=== PATIENT | female | born 1970 | race Caucasian/White ===

== ENCOUNTER 2024-08-01 16:34 | Emergency (ER) | payer OTHER, SELFPAY ==
[2024-08-01] VITALS (24 sets, daily range): BP systolic 126–143; BP diastolic 81–92; PULSE 68–100; TEMP 36.7; O2SAT 96–100; BMI 14.9
--- NOTE | 2024-08-01 17:00 | ECG_ITS ---
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
[2024-08-01 17:45] LABS: Basophils Percent Auto 0.5 % (0.2-2.0); Eosinophils Absolute Auto 0.1 10^3/uL (0.0-0.7); Eosinophils Percent Auto 1.2 % (0.9-7.0); Hemoglobin 10.1 g/dL (12.0-16.0); Immature Granulocytes Abs Auto 0.02 10^3/uL (0.00-0.03); Immature Granulocytes Pct Auto 0.3 % (0.0-0.5); Lymphocytes Absolute Auto 1.9 10^3/uL (1.2-3.8); Lymphocytes Percent Auto 31.8 % (20.5-60.0); Mean Corpuscular HGB Conc 31.6 g/dL (29.9-35.2); Mean Corpuscular Hemoglobin 29.5 pg (26.7-34.0); Mean Corpuscular Volume 93.6 fL (81.0-99.0); Mean Platelet Volume 9.8 fL (9.5-13.5); Monocytes Absolute Auto 0.4 10^3/uL (0.3-0.8); Monocytes Percent Auto 7.4 % (1.7-12.0); Neutrophils Absolute Auto 3.5 10^3/uL (1.4-6.5); Neutrophils Percent Auto 58.8 % (43.0-75.0); Platelet Count 311 10^3/uL (150-450); Red Blood Count 3.42 10^6/uL (4.20-5.40); Red Cell Distribution Width 13.8 % (11.0-15.0); White Blood Count 5.9 10^3/uL (4.0-11.0)
[2024-08-01 17:46] LABS: Bilirubin Urine NEGATIVE (NEGATIVE); Blood Urine NEGATIVE (NEGATIVE); Clarity Urine CLEAR (CLEAR); Color Urine LT. YELLOW (YELLOW); Glucose Urine UA NEGATIVE (NEGATIVE); Ketones Urine NEGATIVE (NEGATIVE); Leukocyte Esterase Urine NEGATIVE (NEGATIVE); Nitrite Urine NEGATIVE (NEGATIVE); Protein Urine NEGATIVE (NEG/TRACE); Urine Microscopic Indicated NO; Urobilinogen Urine 0.2 EU/dL (0.2-1.0)
[2024-08-01 17:59] LABS: INR 0.93; Prothrombin Time 9.9 sec (9.0-11.6)
[2024-08-01 18:05] LABS: Alanine Aminotransferase 21 U/L (14-59); Albumin Level 3.4 g/dL (3.4-5.0); Alkaline Phosphatase 90 U/L (46-116); Aspartate Amino Transferase 15 U/L (15-37); BUN Creatinine Ratio 11.7; Bilirubin Total 0.2 mg/dL (0.2-1.0); Calcium 8.7 mg/dL (8.5-10.1); Carbon Dioxide 25.9 mmol/L (21.0-32.0); Chloride 106 mmol/L (98-107); Estimated GFR (African America >60 (>=60 mL/min/1.73m^2); Estimated GFR (Non-African Ame 51 (>=60 mL/min/1.73m^2); Globulin 3.5 g/dL; Glucose 97 mg/dL (74-106); Lactate/Lactic Acid 1.2 mmol/L (0.4-2.0); Potassium 3.9 mmol/L (3.5-5.1); Sodium 141 mmol/L (136-145); Total Protein 6.9 g/dL (6.4-8.2); Troponin I High Sensitivity <4.0 pg/mL (4.0-51.3)
[2024-08-01] MEDS: KETOROLAC TROMETHAMINE 30 MG/ML VIAL 15 MG IVP (18:07)
--- NOTE | 2024-08-01 18:10 | CT_ITS ---
[address] [address] Patient Name: MOOKIE SIMMONS MRN: [id number] date: 1970 Sex: F Assigned Patient Location: ER Current Patient Location: [facility] Accession/Order Number: [id number] Exam Date: 08/01/2024 18:40 Report Date: 08/01/2024 19:50 At the request of: RAUL PEREZ Procedure: CT abdomen pelvis w con EXAMINATION: CT abdomen pelvis w con HISTORY: left abd pain ; upper abdominal pain radiating into chest; history of colon/rectal cancer COMPARISON: CT abdomen pelvis 02/13/2014 TECHNIQUE: Axial, Coronal, and Sagittal images were obtained without and/or with IV contrast as indicated by examination type. Dose reduction techniques were achieved by using automated exposure control and/or adjustment of mA and/or kV according to patient size and/or use of iterative reconstruction technique. FINDINGS: LUNG BASES: No visible pulmonary or pleural disease. LIVER: Incidental benign-appearing cyst within left hepatic lobe. No enlargement, atrophy, suspicious density, or significant focal lesion. BILIARY: No dilatation or calcification. PANCREAS: No lesion, fluid collection, or abnormal duct dilatation. SPLEEN: No enlargement or focal lesion. ADRENALS: No mass or enlargement. KIDNEYS: Several small benign-appearing cysts within left kidney. Unremarkable right kidney and bilateral ureters. No mass, obstruction, or calcification. BOWEL/MESENTERY: Slight wall thickening of distal stomach with small amount of fluid and air penetrating into the anterior wall versus incidental fold. Findings suspicious for gastric ulcer. Fluid-filled stomach and mildly distended loops of small bowel without appreciable obstruction. Innumerable tiny hypodensities scattered throughout the stomach, small bowel, and colon likely representing ingested products as milk of magnesia. No visible mass, obstruction, or bowel wall thickening. AORTA/VASCULAR: No aneurysm or dissection. RETROPERITONEUM: No mass or adenopathy. LYMPH NODES: No adenopathy. URINARY BLADDER: No visible focal wall thickening, lesion, or calculus. PELVIC ORGANS: No visible mass. Pelvic organs appropriate for patient age. ABDOMINAL WALL: No mass or hernia. BONES: L5-S1 marked degenerative disc disease. No bone lesion or fracture. OTHER: Negative. CT/CT abdomen pelvis w con IMPRESSION: 1. Mild wall thickening of distal stomach with findings suggestive of large gastric ulcer along the distal anterior wall. No perforation or erosion through the wall. 2. Fluid-filled mildly distended loops of small bowel; possible enteritis. 3. L5-S1 marked disc space narrowing; not significantly changed compared to prior study. Electronically authenticated by: LUCY BERMEO Date: 08/01/2024 19:50
--- NOTE | 2024-08-01 18:20 | PC.NURSE ---
pt refuses morphine, she is afraid it will cause her to have migraine headache, Dr Gong notified
--- NOTE | 2024-08-01 18:52 | ED_ITS ---
HPI - Abdominal Pain General Chief Complaint: Abdominal Pain Stated Complaint: abd pain Time Seen by Provider: 08/01/24 16:54 Source: patient Mode of arrival: walk-in Limitations: no limitations History of Present Illness HPI narrative: The patient of history rectal cancer s/p resection almost a year ago is coming to the ER with abdominal pain her abdominal pain left abdominal The pain associated sometimes with nausea and vomiting she mentioned that been going on at least for few weeks and the patient did not come here because she does not like hospitals Patient denies any chest pain her pain is mostly epigastric and going down to her left lower quadrant Related Data Home Medications ?Medication ?Instructions ?Recorded ?Confirmed fremanezumab-vfrm 225 mg/1.5 mL 225 mg subcut DAILY PRN headache 08/01/24 08/01/24 subcutaneous auto-injector (Ajovy) gabapentin 400 mg capsule 400 mg PO TID 08/01/24 08/01/24 (Neurontin) indomethacin 50 mg capsule 50 mg PO BID 08/01/24 08/01/24 sumatriptan succinate 100 mg 100 mg PO Q2H PRN migraine headache 08/01/24 08/01/24 tablet (Imitrex) topiramate 50 mg tablet (Topamax) 50 mg PO DAILY 08/01/24 08/01/24 ubrogepant 100 mg tablet (Ubrelvy) 100 mg PO .every 6 PRN headache 08/01/24 08/01/24 Allergies Allergy/AdvReac Type Severity Reaction Status Date / Time Penicillins AdvReac Intermediate Unknown Verified 08/01/24 16:39 Sulfa (Sulfonamide AdvReac Mild Unknown Verified 08/01/24 16:39 Antibiotics) Review of Systems ROS Status of ROS 10 or more systems reviewed and unremark able except as noted in history and below PFSH PFSH Social History Little interest or pleasure in doing things: not at all Feeling down, depressed, or hopeless: not at all Exam Narrative Exam Narrative: Nurses notes and vital signs reviewed and patient is not hypoxic. General: Well-appearing and in no apparent distress. Skin: Warm, dry, no pallor noted. No rash. Head: Normocephalic, atraumatic. Neck: Supple, non-tender. Eye: Pupils are equal, round and EOMI. No scleral icterus. Ears, Nose, Mouth, and Throat: TM are clear, no nasal mucosal hypertrophy. Oral mucosa is moist, no posterior oropharynx erythema, uvula is mid-line Cardiovascular: Regular Rate and Rhythm without murmur, gallop or rub. Respiratory: No accessory muscle use or respiratory distress. Lungs are clear to auscultation, no wheezing, rales or rhonchi Chest Wall: no tenderness Back: No midline thoracic or lumbar vertebral tenderness. No CVA tenderness Musculoskeletal: normal ROM, no calf or popliteal tenderness, no lower extremity edema/swelling GI: Tenderness upon palpation of the left lower quadrant as well as the left side of the abdomen Neurological: A&O x4. No cranial nerve dysfunction observed. No truncal ataxia. Moves all extremities. Sensation intact. Psychiatric: Cooperative and interactive. Normal mood and affect. Constitutional Vital Signs, click to edit/add: Last Vital Signs Temp 98.1 F 08/01/24 16:39 Pulse 85 08/01/24 16:39 Resp 18 08/01/24 16:39 BP 142/88 H 08/01/24 16:39 Pulse Ox 100 08/01/24 16:39 Course Vital Signs Vital signs: Vital Signs Temperature 98.1 F 08/01/24 16:39 Pulse Rate 85 08/01/24 16:39 Respiratory Rate 18 08/01/24 16:39 Blood Pressure 142/88 H 08/01/24 16:39 Pulse Oximetry 100 08/01/24 16:39 Temperature 98.1 F 08/01/24 16:39 Pulse Rate 85 08/01/24 16:39 Respiratory Rate 18 08/01/24 16:39 Blood Pressure 142/88 H 08/01/24 16:39 Pulse Oximetry 100 08/01/24 16:39 MDM - Abdominal Pain MDM Narrative Medical decision making narrative: The patient EKG in the ER showing sinus rhythm with a heart rate of [address] elevation or depression CBC and chemistry showed no acute pathology with a hemoglobin of 10 that seem to be a chronic issue in addition to creatinine 1.1 and the patient have a CAT scan with contrast that is pending Patient care will be transferred to Dr. Jerez Lab Data Labs: Lab Results 08/01/24 Range/Units 17:15 WBC 5.9 (4.0-11.0) 10^3/uL RBC 3.42 L (4.20-5.40) 10^6/uL Hgb 10.1 L (12.0-16.0) g/dL Hct 32.0 L (36.0-48.0) % MCV 93.6 (81.0-99.0) fL MCH 29.5 (26.7-34.0) pg MCHC 31.6 (29.9-35.2) g/dL RDW 13.8 (11.0-15.0) % Plt Count 311 (150-450) 10^3/uL MPV 9.8 (9.5-13.5) fL Neut % (Auto) 58.8 (43.0-75.0) % Lymph % (Auto) 31.8 (20.5-60.0) % [place] % (Auto) 7.4 (1.7-12.0) % Eos % (Auto) 1.2 (0.9-7.0) % Baso % (Auto) 0.5 (0.2-2.0) % Neut # (Auto) 3.5 (1.4-6.5) 10^3/uL Lymph # (Auto) 1.9 (1.2-3.8) 10^3/uL [place] # (Auto) 0.4 (0.3-0.8) 10^3/uL Eos # (Auto) 0.1 (0.0-0.7) 10^3/uL Baso # (Auto) 0.0 (0.0-0.1) 10^3/uL Abs Immat Gran (auto) 0.02 (0.00-0.03) 10^3/uL Imm/Tot Granulo (auto) 0.3 (0.0-0.5) % PT 9.9 (9.0-11.6) sec INR 0.93 Sodium 141 (136-145) mmol/L Potassium 3.9 (3.5-5.1) mmol/L Chloride 106 (98-107) mmol/L Carbon Dioxide 25.9 (21.0-32.0) mmol/L Anion Gap 13.0 BUN 13.0 (7.0-18.0) mg/dL Creatinine 1.11 H (0.55-1.02) mg/dL Est GFR ( Amer) >60 (>=60 mL/min/1.73m^2) Est GFR (Non-Af Amer) 51 L (>=60 mL/min/1.73m^2) BUN/Creatinine Ratio 11.7 Glucose 97 (74-106) mg/dL Lactate 1.2 (0.4-2.0) mmol/L Calcium 8.7 (8.5-10.1) mg/dL Total Bilirubin 0.2 (0.2-1.0) mg/dL AST 15 (15-37) U/L ALT 21 (14-59) U/L Alkaline Phosphatase 90 (46-116) U/L Troponin I High Sens <4.0 L (4.0-51.3) pg/mL Total Protein 6.9 (6.4-8.2) g/dL Albumin 3.4 (3.4-5.0) g/dL Globulin 3.5 g/dL Albumin/Globulin Ratio 1.0 Lipase 33.0 (16.0-77.0) U/L Urine Color Lt. yellow (YELLOW) Urine Clarity Clear (CLEAR) Urine pH 7.0 (5.0-9.0) Ur Specific [place] 1.010 (1.005-1.025) Urine Protein Negative (NEG/TRACE) mg/dL Urine Glucose (UA) Negative (NEGATIVE) mg/dL Urine Ketones Negative (NEGATIVE) mg/dL Urine Occult Blood Negative (NEGATIVE) Urine Nitrite Negative (NEGATIVE) Urine Bilirubin Negative (NEGATIVE) Urine Urobilinogen 0.2 (0.2-1.0) EU/dL Ur Leukocyte Esterase Negative (NEGATIVE) Discharge Plan Discharge Patient Disposition: Still a Patient
[2024-08-01] MEDS: ONDANSETRON PF 4 MG/2 ML VIAL IV (18:54)
[2024-08-01] MEDS: MORPHINE SULFATE 2 MG/ML SYRINGE IV (19:51)
[2024-08-01] MEDS: PANTOPRAZOLE SODIUM 40 MG VIAL IV (20:04)
== END 2024-08-01 20:19 | disposition home or self-care (01) ==
PROVIDERS: Emergency Provider Emergency Medicine
DX: K25.9 Gastric ulcer, unspecified as acute or chronic, without hemorrhage or perforation (principal); R10.9 Unspecified abdominal pain; Z85.048 Personal history of other malignant neoplasm of rectum, rectosigmoid junction, and anus; Z90.49 Acquired absence of other specified parts of digestive tract
CPT/HCPCS: 36415; 74177; 80053; 81003; 83605; 83690; 84484; 85025; 85610; 93005; 96374; 96375; 99285; J1885; J2270; J2405; Q9967